=== PATIENT | female | born 1955 | race Caucasian/White ===

== ENCOUNTER → 2016-09-13 | Outpatient (CLI) | payer BC ==
[2016-09-13 11:00] LABS: MEAN CORPUSCULAR HEMOGLOBIN 30.4 PG (26.0-34.0); MEAN CORPUSCULAR HGB CONC 33.4 g/dL (31.0-37.0); MEAN CORPUSCULAR VOLUME 91 FL (80-100); MEAN PLATELET VOLUME 9.7 FL (6.0-9.5); PLATELET COUNT 302 10^3uL (150-450); WHITE BLOOD COUNT 5.16 10^3uL (4.0-11.0)
[2016-09-13 11:44] LABS: ALBUMIN 3.8 g/dL (3.4-5.0); ALKALINE PHOSPHATASE 75 U/L (38-126); ANION GAP 14.1 MEQ/L (3-15); BUN/CREATININE RATIO 10 (10-20); CALCULATED IONIZED CALCIUM 4.3 mg/dL (3.8-4.6); TOTAL PROTEIN 6.3 g/dL (6.4-8.5)
[2016-09-13 12:04] LABS: BAND NEUTROPHILS % 0 % (0-6); SEGMENTED NEUTROPHILS % 44 % (51-67)
[2016-09-13 12:05] LABS: EOSINOPHILS % 2 % (0-4); MONOCYTES % 17 % (3-11); RBC MORPH NORMAL (NORMAL); TOTAL CELLS COUNTED 100
[2016-09-13 17:56] LABS: GGT 61 U/L (3-36)
== END ==
LOC: LAB 10:38
PROVIDERS: ATTEND Family Medicine
DX: Z00.00 Encounter for general adult medical examination without abnormal findings (principal); M81.0 Age-related osteoporosis without current pathological fracture; C73 Malignant neoplasm of thyroid gland
CPT/HCPCS: 36415; 80053; 80061; 82306; 82977; 84432; 84436; 84443; 85025; 86800

== ENCOUNTER → 2016-09-14 | Outpatient (CLI) | payer BC ==
--- NOTE | 2016-09-14 12:07 | Diagnostic Imaging Report ---
INDICATION: Hypoxemia. PA and lateral chest. FINDINGS: Heart and mediastinum are normal. Lungs are clear. There are no effusions or pneumothoraces. IMPRESSION: No acute abnormalities in the chest. Dictated by: Dictated on workstation # [id number]
--- NOTE | 2016-09-15 09:00 | Diagnostic Imaging Report ---
EXAM: Bilateral Digital Screening Mammography, with computer aided detection system (CAD). DATE: September 14, 2016. COMPARISON: October 09, 2014; July 30, 2013. INDICATION: Breast cancer screening. FINDINGS: There are scattered fibroglandular densities. There are no suspicious findings in either breast. IMPRESSION: No mammographic evidence of malignancy. Recommend annual screening mammography and clinical breast exam. ACR BI-RADS Category 2: Benign findings. Result letter will be mailed to the patient. Note: At least 10% of breast cancer is not imaged by mammography. Dictated by: Dictated on workstation # [id number]
== END ==
LOC: RAD 09:21
PROVIDERS: ATTEND Family Medicine
DX: Z00.00 Encounter for general adult medical examination without abnormal findings (principal); Z12.31 Encounter for screening mammogram for malignant neoplasm of breast; R09.02 Hypoxemia
CPT/HCPCS: 71020; 93005; 94620; G0202